=== PATIENT | female | born 1990 ===

== ENCOUNTER 2022-02-28 16:12 | Emergency (ER) | payer BC ==
[2022-02-28] MEDS ORDERED: Potassium Chloride 20 MEQ Tab.ER PO ONE (22:01)
[2022-02-28] MEDS ORDERED: Ondansetron 4 MG Tab.DIS PO ONE (22:08)
== END 2022-02-28 22:30 | disposition home or self-care (01) ==
LOC: JD.ED 16:12
DX: R50.9 Fever, unspecified (principal); R11.2 Nausea with vomiting, unspecified; B34.9 Viral infection, unspecified; F17.210 Nicotine dependence, cigarettes, uncomplicated; Z86.16 Personal history of COVID-19; Z20.822 Contact with and (suspected) exposure to COVID-19
CPT/HCPCS: 36415; 80053; 83735; 85007; 85027; 86140; 87635; 99284; A9270; 99283; U0002